=== PATIENT | male | born 1975 | race Caucasian/White ===

== ENCOUNTER 2022-09-25 00:09 | Day surgery (SDC) | payer BC, SELFPAY ==
[2022-09-17 09:29] VITALS: BMI 27.4
--- NOTE | ~2022-09-25 | XR_ITS ---
EXAMINATION: XR_ENEMABAC_CR DATE: 09/25/2022 15:09 INDICATION: Limited colonoscopy TECHNIQUE: A classification and treatment director radiograph was obtained, initially at 8:44 AM which demonstrated a large amount of gas throughout the colon. The patient agreed to return later in the afternoon in order to reduce the amount of gas. A second classification and treatment director radiograph was obtained at 2:11 PM at which time the procedure commenc ed. A catheter was inserted into the patient's rectum. Contrast was infused by gravity. Gas was infus ed by hand pump. Fluoroscopic spot images and conventional radiographs were obtained. Fluoroscopy exp osure time was 2.8 minutes. A total of 21 fluoroscopic images and 16 overhead radiographs were obtain ed. COMPARISON: None. FINDINGS: There is significant tortuosity of the sigmoid and transverse colon necessitating administration of r elatively large volume of contrast in order to reach the cecum. The colon was somewhat patulous which along with the amount of contrast in the tortuosity of the colon resulted in retention of a signific ant amount of barium which somewhat limits assessment on fluoroscopic imaging. Based primarily upon t he overhead radiographs and in particular the left and right lateral decubitus views there is however considered to be adequately gaseous distention and visualization of the entire colon. There are no e vident fixed strictures, suspicious mucosal irregularities, polyps or diverticula along the colon. IMPRESSION: 1. Significant tortuosity of the transverse and sigmoid colon but no evident colonic strictures, susp icious mucosal irregularities, polyps or diverticula. Reviewed, dictated and finalized at location A. [employer] IMPRESSION: 1. Significant tortuosity of the transverse and sigmoid colon but no evident co lonic strictures, suspicious mucosal irregularities, polyps or diverticula.
[2022-09-25 06:46] VITALS: BP 117/90; PULSE 76; RESP 18; TEMP 36.2; O2SAT 97; BMI 28.0
[2022-09-25] MEDS: LACTATED RINGERS 1,000 ML 150 ML IV CONT (07:04)
--- NOTE | 2022-09-25 07:05 | P.PNAN_ITS ---
Anes - Initial Pre Proc Eval Procedure: Operation Date: 09/25/22 08:00 Proposed Procedures p Screening Colonoscopy - Janes Acharya MD Date/Time: 09/25/22 07:05 Surgeon: Janes Acharya MD Pre Op Diagnosis: neoplasm screening, fam hx of colon polyps Patient Data Age: 47 Gender: M Height: 1.73 m Weight: 83.6 kg Last Vital Signs Temp 36.2 C L 09/25/22 06:46 Pulse 76 09/25/22 06:46 Resp 18 09/25/22 06:46 BP 117/90 09/25/22 06:46 Pulse Ox 97 09/25/22 06:46 O2 Del Method Room Air 09/25/22 06:46 Allergies Allergy/AdvReac Type Severity Reaction Status Date / Time No Known Allergies Allergy Unverified 09/17/22 09:45 Home Medications Medication Instructions Recorded Confirmed Type peg 3350-electrolytes 236 240 ml PO Q10M #4,000 mL 08/11/22 Rx gram-22.74 gram-6.74 gram-5.86 gram solution (Golytely) aspirin 81 mg tablet 81 mg PO DAILY 09/17/22 09/17/22 History atorvastatin 10 mg tablet 10 mg PO DAILY 09/17/22 09/17/22 History multivitamin with minerals-folic 1 tablet PO DAILY 09/17/22 09/17/22 History acid 0.4 mg tablet omega-3 fatty acids-vitamin E 1 cap PO DAILY 09/17/22 09/17/22 History 1,000 mg capsule Patient hx anesthesia problems: none Family hx anesthesia problems: none Results Review: All pre-operative results and documents have been reviewed as part of the pre- operative evaluation. [facility] Past Medical History Medical History (Updated 09/25/22 @ 07:06 by Tien Dubois MD) Hyperlipidemia Social History Social History Smoking status: Never smoker Alcohol intake: current Drinks per week: 3 Substance use type: does not use Living arrangements: with family Spiritual care concerns: No Anes - Eval Final PreProcedure Day of Procedure 09/25/22 07:05 Patient weight: normal Heart: regular rate and rhythm Lungs: clear to auscultation Airway: Mallampati scale class 1 Neurological: alert and oriented Last oral intake: >/= 8 hours ASA classification: I Emergent: no Anesthetic plan: proceed Anesthesia type and monitoring: general GIVS and standard monitoring Results Review: All pre-operative results and documents have been reviewed as part of the pre- operative evaluation. Informed Consent: The patient's anesthetic plan and its attendant risks and benefits were discussed with the patient/family/POA. Questions were solicited and answers provided to the satisfaction of the patient/family/POA.
--- NOTE | 2022-09-25 07:23 | PM.HPGS ---
History of Present Illness History of Present Illness Consent: Risks, benefits, and alternatives have been discussed and questions answered. Patient agrees to proceed with procedure. Chief complaint: neoplasm screening, fam hx of colon polyps Narrative: Angel Lazar is a 47 year old male Presents for screening colonoscopy. Patient's current weight appetite bowel movements are normal. Family history is significant sister and father both have had colon polyps. Patient states that his current weight appetite bowel movements are normal with no bleeding. No pain. Review of Systems Review of Systems: Review of systems noncontributory. [facility] Past Medical History Medical History (Updated 09/25/22 @ 07:24 by Janes Acharya MD) Hyperlipidemia Social History Social History Smoking status: Never smoker Alcohol intake: current Drinks per week: 3 Substance use type: does not use Living arrangements: with family Spiritual care concerns: No Meds Home Medications and Allergies Home Medications Medication Instructions Recorded Confirmed Type peg 3350-electrolytes 236 240 ml PO Q10M #4,000 mL 08/11/22 Rx gram-22.74 gram-6.74 gram-5.86 gram solution (Golytely) aspirin 81 mg tablet 81 mg PO DAILY 09/17/22 09/17/22 History atorvastatin 10 mg tablet 10 mg PO DAILY 09/17/22 09/17/22 History multivitamin with minerals-folic 1 tablet PO DAILY 09/17/22 09/17/22 History acid 0.4 mg tablet omega-3 fatty acids-vitamin E 1 cap PO DAILY 09/17/22 09/17/22 History 1,000 mg capsule Allergies Allergy/AdvReac Type Severity Reaction Status Date / Time No Known Allergies Allergy Unverified 09/17/22 09:45 Vital Signs Vital Signs - 24 hr 09/25/22 06:46 Temperature 97.1 F L Pulse Rate 76 Respiratory Rate 18 Blood Pressure 117/90 Pulse Oximetry 97 Oxygen Delivery Room Air Exam Narrative: Physical exam reveals patient to be alert. Vital signs stable. HEENT exam is unremarkable. Patient is anicteric. Lungs are clear to auscultation and percussion. Heart is without murmur or extra sounds. Abdomen bowel sounds present soft nontender with no organomegaly. Digital external rectal exam is normal. Assessment and Plan Assessment and plan (1) Family history of colonic polyps: Code(s): Z83.71 - Family history of colonic polyps Status: Acute Assessment and Plan: Patient presents today for screening colonoscopy. Family history is significant father and sister both have colon polyps. Further recommendations will be given after endoscopy.
[2022-09-25 08:13] VITALS: BP 101/69; PULSE 70; RESP 20; O2SAT 99
[2022-09-25 08:23] VITALS: BP 109/67; PULSE 68; RESP 23; O2SAT 98
[2022-09-25 08:33] VITALS: BP 112/73; PULSE 67; RESP 20; O2SAT 98
--- NOTE | 2022-09-25 08:39 | SUR.PHASEII ---
Patient taken to Xray for the barium enema before discharge. updated and patient will be discharged from xray.
== END 2022-09-25 08:39 | disposition home or self-care (01) ==
PROVIDERS: PCP Internal Medicine; Visit Provider Internal Medicine Gastroenterology
PROC: 0DJD8ZZ Inspection of Lower Intestinal Tract, Via Natural or Artificial Opening Endoscopic (ICD-10-PCS; CPT 45378; principal; 2022-09-25 08:00)
DX: Z12.11 Encounter for screening for malignant neoplasm of colon (principal); K63.89 Other specified diseases of intestine; K64.8 Other hemorrhoids; Z83.71 Family history of colonic polyps; E78.5 Hyperlipidemia, unspecified
CPT/HCPCS: 45378; 74280; J2704; J7120

== ENCOUNTER 2024-05-23 07:44 | Outpatient (CLI) | payer BC, SELFPAY ==
--- NOTE | ~2024-05-23 | XR_ITS ---
XR hand LT min 3V Ordering provider: Nirmal Vick, History: . Pain L hand . Comparison: None. FINDINGS: BONES: No acute fracture or dislocation. JOINT SPACES: Well maintained. SOFT TISSUES: Unremarkable. IMPRESSION: No acute osseous abnormality left hand. Reviewed, dictated and finalized at location A.
== END 2024-05-23 07:45 ==
PROVIDERS: PCP Internal Medicine; Visit Provider Internal Medicine
DX: M79.642 Pain in left hand (principal)
CPT/HCPCS: 73130

== ENCOUNTER 2025-02-17 14:20 | Emergency (ER) | payer BC, SELFPAY ==
--- OUTSIDE RECORDS SUMMARY | 2025-02-17 14:22 | XMS_ITS | Data Portability ---
Author Organization [place] - [facility] [employer], Main Office Address [address] [place] [address] Assessment Encounter Date Assessment Date Assessment LastModified by Organization Details LastModified Time 03/23/2023 03/23/2023 Continue current therapy six-month follow-up [id number] Not available 04/25/2023 20:42:06 Plan of Treatment Reminders Order Date Submit Date Provider Last Modified By Organization Details Last Modified Time Details Appointments None record ed. Lab None record ed. Referral None record ed. Procedures None record ed. Surgeries None record ed. Imaging None record ed. Medication Orders None record ed. Patient TargetsNo targets recorded. Patient InstructionsNo instructions recorded. Reason for Referral None Reported. Results Created Date Observation Date Name Description Value Unit Range Abnormal Flag Note LastModifiedBy Organization Detail LastModifiedTime 07/07/20 21 07/07/2021 COLOG UARD cologuard result reportable negati ve negati ve NEGAT JULIO TEST RESUL T. A negat julio Colog uard resul t indic ates a low likel ihood that a color ectal cance r (CRC) or advan enio adeno ma (shaquille omato us polyp s with more advan enio pre-m align ant featu res) is prese nt. The [facility] that a perso n with a negat julio Colog uard test has a color ectal cance r is less than 1 in 1500 (nega tive predi ctive value >99.9 %) or has an advan enio adeno ma is less than 5.3% (nega tive predi ctive value 94.7% ). These data are based on a prosp ectiv e cross -sect ional study of 10,00 0 indiv idual s at [place] [facility] risk for color ectal cance r who were scree stephen with both Colog uard and colon oscop y. (Benedict Watson. et al, N Engl J Med 2014; 370(1 4):12 86-12 97) The trip l value (refe rence range ) for this assay is negat julio. COLOG UARD RE-SC REENI NG RECOM MENDA TION: Perio dic color ectal cance r scree elmira is an impor tant part of preve ntive healt hcare for asymp tomat ic indiv idual s at [facility] for color ectal cance r. Follo wing a negat julio Colog uard resul t, the Ameri can Cance r Socie ty and U.S. Multi -Soci ety Task Force scree elmira guide lines recom mend a Colog uard re-sc reeni ng inter manuela of 3 years . Refer ences : Ameri can Cance r Socie ty Guide line for Color ectal Cance r Scree elmira: https ://anisha w.can cer.o rg/ca ncer/ colon -rect al-ca ncer/ detec tion- diagn osis- stagi ng/ac s-rec ommen datio ns.ht ml.; Fran PEÑA, Neo mondragon CR, Trish PEREZ, Color ectal Cance r Scree elmira: Recom menda tions for Physi cians and Patie nts from the U.S. Multi -Soci ety Task Force on Color ectal Cance r Scree elmira , Am Christine posada y 2017; 112:1 016-1 030. TEST DESCR IPTIO N: [place] site algor ithmi c abiodun sis of stool DNA-b ionica kers with hemog lobin immun oassa y. Quant itati ve value s of indiv idual bioma rkers are not repor table and are not assoc iated with indiv idual bioma rker resul t refer ence range s. Colog uard is inten ded for color ectal cance r scree elmira of adult s of eithe r sex, 45 years or older , who are at [facility] sk for color ectal cance r (CRC) . Colog uard has been appro smooth for use by the U.S. FDA. The perfo rmanc e of Colog uard was estab lishe d in a cross secti onal study of [facility] sk adult s aged 50-84 . Colog uard perfo rmanc e in patie nts ages 45 to 49 years was estim ated by clarisa-g aldo abiodun sis of near- age group s. Colon oscop ies perfo rmed for a posit julio resul t may find as the most clini yash signi fican t lesio n: color ectal cance r [4.0% ], advan enio adeno ma (incl uding sessi le mojgan too polyp s great er than or equal to 1cm diame ter) [20%] or non- advan enio adeno ma [31%] ; or no color ectal neopl juana [45%] . These estim ates are deriv ed from a prosp ectiv e cross -sect ional scree elmira study of 0 indiv idual s at [facility] risk for color ectal cance r who were scree stephen with both Colog uard and colon oscop y. (Benedict Patel et al, N Engl J Med 2014; 370(1 4):12 86-12 97.) Colog uard may produ ce a false negat julio or false posit julio resul t (no color ectal cance r or preca ncero us polyp prese nt at colon oscop y follo w up). A negat julio Colog uard test resul t does not guara ntee the absen ce of CRC or advan enio adeno ma (pre- cance r). The curre nt Colog uard scree elmira inter manuela is every 3 years . (Amer ican Cance r Socie ty and U.S. Multi -Soci ety Task Force ). Colog uard perfo rmanc e data in a 0 patie nt pivot al study using colon oscop y as the refer ence metho d can [facility]es [facility] locat ion: www.e xactl abs.c om/re sulmaxi . Addit ional descr iptio n of the Colog uard test proce ss, warni ngs and preca ution s can be found at www.rosalba neumann.rosalba om. Not Available [employer] (Cologuard Orders Only) [address], [place], [address], 07/12/2021 10:01:37 03/20/20 23 03/22/2023 LIPID PANEL , STAND SARAY cholesterol, total 175 mg/dL <200 normal Not Available [employer] [address] [address] [place], [address], 03/22/2023 11:32:11 03/20/20 23 03/22/2023 LIPID PANEL , STAND SARAY HDL cholesterol 49 mg/dL > or = 40 normal Not Available [email or web address] [address] [address] [place], [address], 03/22/2023 11:32:11 03/20/20 23 03/22/2023 LIPID PANEL , STAND SARAY triglyceride s 140 mg/dL <150 normal Not Available [email or web address] [facility] [address] [address] [place], [address], 03/22/2023 11:32:11 03/20/20 23 03/22/2023 LIPID PANEL , STAND SARAY LDL-choleste rol 102 mg/dL _(trina c) high Refer ence range : <100 [employer] able range <100 mg/dL for prima ry preve ntion ; <70 mg/dL for patie nts with CHD or diabe tic patie nts with > or = 2 CHD risk facto rs. LDL-C is now calcu lated using the Agustina n-Hop kins calcu latio n, which is a valid ated novel metho d jade abdi than the Fried edwige equat ion in the estim ation of LDL-C . Agustina garcia SS et al. HAYLEE. 2013; 310(1 9): 2061- 2068 (http ://ed ucati on.Qu estDi navigayaos tics. com/f aq/FA Q164) Not Available [employer] [address] [address] [place], [address], 03/22/2023 11:32:11 03/20/20 23 03/22/2023 LIPID PANEL , STAND SARAY chol/HDLC ratio 3.6 (calc ) <5.0 normal Not Available [address], [address], 03/22/2023 11:32:11 03/20/20 23 03/22/2023 LIPID PANEL , STAND SARAY non HDL cholesterol 126 mg/dL _(trina c) <130 normal For patie nts with diabe candi plus 1 major ASCVD risk facto r, treat ing to a non-H DL-C goal of <100 mg/dL (LDL- C of <70 mg/dL ) is consi ivan a brandee whitten c optio n. Not Available [address] [address] [place], [address], 03/22/2023 11:32:11 03/20/20 23 03/22/2023 COMPR EHENS JULIO METAB OLIC PANEL glucose 86 mg/dL 65-99 normal Fasti ng refer ence inter manuela Not Available [address], [address], 03/22/2023 11:32:12 03/20/20 23 03/22/2023 COMPR EHENS JULIO METAB OLIC PANEL urea nitrogen (BUN) 13 mg/dL 7-25 normal Not Available [address], [address], 03/22/2023 11:32:12 03/20/20 23 03/22/2023 COMPR EHENS JULIO METAB OLIC PANEL creatinine 0.92 mg/dL 0.60-1 .29 normal Not Available [address], [address], 03/22/2023 11:32:12 03/20/20 23 03/22/2023 COMPR EHENS JULIO METAB OLIC PANEL eGFR 102 mL/mi n/1.7 3m2 > or = 60 normal The eGFR is based on the CKD-E PI 2020 equat ion. To calcu late the new eGFR from a previ ous Creat inine or Cysta sabra C resul t, go to https ://anisha garcia.richelle peterson/edgardo khan s/ kdoqi /gfr% 5Fcal culat or Not Available [address] [address] [place], [address], 03/22/2023 11:32:12 03/20/20 23 03/22/2023 COMPR EHENS JULIO METAB OLIC PANEL BUN/creatini ne ratio NOT APPLIC ABLE (calc ) 6-22 Not Available [address], [address], 03/22/2023 11:32:12 03/20/20 23 03/22/2023 COMPR EHENS JULIO METAB OLIC PANEL sodium 136 mmol/ L 135-14 6 normal Not Available [address] [address] [place], [address], 03/22/2023 11:32:12 03/20/20 23 03/22/2023 COMPR EHENS JULIO METAB OLIC PANEL potassium 4.4 mmol/ L 3.5-5. 3 normal Not Available [address], [address], 03/22/2023 11:32:12 03/20/20 23 03/22/2023 COMPR EHENS JULIO METAB OLIC PANEL chloride 102 mmol/ L 98-110 normal Not Available [facility] [address] [address] [place], [address], 03/22/2023 11:32:12 03/20/20 23 03/22/2023 COMPR EHENS JULIO METAB OLIC PANEL carbon dioxide 29 mmol/ L 20-32 normal Not Available [address] [address] [place], [address], 03/22/2023 11:32:12 03/20/20 23 03/22/2023 COMPR EHENS JULIO METAB OLIC PANEL calcium 9.6 mg/dL 8.6-10 .3 normal Not Available [address], [address], 03/22/2023 11:32:12 03/20/20 23 03/22/2023 COMPR EHENS JULIO METAB OLIC PANEL protein, total 6.3 g/dL 6.1-8. 1 normal Not Available [address], [address], 03/22/2023 11:32:12 03/20/20 23 03/22/2023 COMPR EHENS JULIO METAB OLIC PANEL albumin 4.5 g/dL 3.6-5. 1 normal Not Available [address], [address], 03/22/2023 11:32:12 03/20/20 23 03/22/2023 COMPR EHENS JULIO METAB OLIC PANEL globulin 1.8 g/dL_ (calc ) 1.9-3. 7 low Not Available [address], [address], 03/22/2023 11:32:12 03/20/20 23 03/22/2023 COMPR EHENS JULIO METAB OLIC PANEL albumin/glob ulin ratio 2.5 (calc ) 1.0-2. 5 normal Not Available [address], [address], 03/22/2023 11:32:12 03/20/20 23 03/22/2023 COMPR EHENS JULIO METAB OLIC PANEL bilirubin, total 0.9 mg/dL 0.2-1. 2 normal Not Available [address], [address], 03/22/2023 11:32:12 03/20/20 23 03/22/2023 COMPR EHENS JULIO METAB OLIC PANEL alkaline phosphatase 53 U/L 36-130 normal Not Available [facility] [address] [address] [place], [address], 03/22/2023 11:32:12 03/20/20 23 03/22/2023 COMPR EHENS JULIO METAB OLIC PANEL AST 17 U/L 10-40 normal Not Available [address], [address], 03/22/2023 11:32:12 03/20/20 23 03/22/2023 COMPR EHENS JULIO METAB OLIC PANEL ALT 18 U/L 9-46 normal Not Available [address], [address], 03/22/2023 11:32:12 03/20/20 23 03/22/2023 CBC (INCL UDES DIFF/ PLT) white blood cell count 5.1 thous and/u L 3.8-10 .8 normal Not Available [address], [address], 03/22/2023 11:32:13 03/20/20 23 03/22/2023 CBC (INCL UDES DIFF/ PLT) red blood cell count 5.40 kristine on/uL 4.20-5 .80 normal Not Available [address], [address], 03/22/2023 11:32:13 03/20/20 23 03/22/2023 CBC (INCL UDES DIFF/ PLT) hemoglobin 16.7 g/dL 13.2-1 7.1 normal Not Available [email or web address] [address], [address], 03/22/2023 11:32:13 03/20/20 23 03/22/2023 CBC (INCL UDES DIFF/ PLT) hematocrit 47.5 % 38.5-5 0.0 normal Not Available [email or web address] [address], [address], 03/22/2023 11:32:13 03/20/20 23 03/22/2023 CBC (INCL UDES DIFF/ PLT) MCV 88.0 fL 80.0-1 00.0 normal Not Available [address], [address], 03/22/2023 11:32:13 03/20/2003/22/2023 CBC (INCL UDES DIFF/ PLT) MCH 30.9 pg 27.0-3 3.0 normal Not Available [address], [address], 03/22/2023 11:32:13 03/20/2003/22/2023 CBC (INCL UDES DIFF/ PLT) MCHC 35.2 g/dL 32.0-3 6.0 normal Not Available [address], [address], 03/22/2023 11:32:13 03/20/2003/22/2023 CBC (INCL UDES DIFF/ PLT) RDW 12.2 % 11.0-1 5.0 normal Not Available [address], [address], 03/22/2023 11:32:13 03/20/2003/22/2023 CBC (INCL UDES DIFF/ PLT) platelet count 210 thous and/u L 140-40 0 normal Not Available [address], [address], 03/22/2023 11:32:13 03/20/20 23 03/22/2023 CBC (INCL UDES DIFF/ PLT) MPV 8.8 fL 7.5-12 .5 normal Not Available [address], [address], 03/22/2023 11:32:13 03/20/20 23 03/22/2023 CBC (INCL UDES DIFF/ PLT) absolute neutrophils 2300 cells /uL 1500-7 800 normal Not Available [facility] [address], [address], 03/22/2023 11:32:13 03/20/2003/22/2023 CBC (INCL UDES DIFF/ PLT) absolute lymphocytes 2122 cells /uL 850-39 00 normal Not Available [address], [address], 03/22/2023 11:32:13 03/20/20 23 03/22/2023 CBC (INCL UDES DIFF/ PLT) absolute monocytes 490 cells /uL 200-95 0 normal Not Available [address], [address], 03/22/2023 11:32:13 03/20/20 23 03/22/2023 CBC (INCL UDES DIFF/ PLT) absolute eosinophils 158 cells /uL 15-500 normal Not Available [facility] [address], [address], 03/22/2023 11:32:13 03/20/2003/22/2023 CBC (INCL UDES DIFF/ PLT) absolute basophils 31 cells /uL 0-200 normal Not Available [address], [address], 03/22/2023 11:32:13 03/20/20 23 03/22/2023 CBC (INCL UDES DIFF/ PLT) neutrophils 45.1 % normal Not Available [facility] [address], [address], 03/22/2023 11:32:13 03/20/2003/22/2023 CBC (INCL UDES DIFF/ PLT) lymphocytes 41.6 % normal Not Available [facility] [address], [address], 03/22/2023 11:32:13 03/20/20 23 03/22/2023 CBC (INCL UDES DIFF/ PLT) monocytes 9.6 % normal Not Available [facility] [address], [address], 03/22/2023 11:32:13 03/20/2003/22/2023 CBC (INCL UDES DIFF/ PLT) eosinophils 3.1 % normal Not Available [facility] [address], [address], 03/22/2023 11:32:13 03/20/20 23 03/22/2023 CBC (INCL UDES DIFF/ PLT) basophils 0.6 % normal Not Available [email or web address] [address], [address], 03/22/2023 11:32:13 03/20/2003/22/2023 HS CRP hs CRP 0.4 mg/L normal Refer ence Range Optim al <1.0 Teresita ARELLANO et al. Endoc r Pract .2017 ;23(S uppl 2):1- 87. For ages >17 Years : hs-CR P mg/L Risk Accor ding to AHA/C DC Guide lines <1.0 Lower relat julio cardi ovasc ular risk. 1.0-3 .0 [place] ge relat julio cardi ovasc ular risk. 3.1-1 0.0 Highe r relat julio cardi ovasc ular risk. Consi trell retes ting in 1 to 2 weeks to exclu de a benig n trans ient eleva tion in the basel ine CRP value secon jalen to infec tion or infla mmati on. >10.0 Persi stent eleva tion, upon retes ting, may be assoc iated with infec tion and infla mmati on. Not Available [email or web address] [address], [address], 03/22/2023 11:32:14 03/20/20 23 03/22/2023 HEMOG LOBIN A1C hemoglobin A1C 4.9 %_of_ total _HGB <5.7 normal For the purpo se of angelica ku for the prese nce of diabe candi: <5.7% Consi stent with the absen ce of diabe candi 5.7-6 .4% Consi stent with incre ased risk for diabe candi (pred iabet es) > or =6.5% Consi stent with diabe candi This assay resul t is consi stent with a decre ased risk of diabe candi. Curre ntly, no conse nsus exist s chary rivers use of hemog lobin A1c for diagn osis of diabe candi in child annette. Accor ding to Ameri can Diabe candi Assoc iatio n (ADA) guide lines , hemog lobin A1c <7.0% repre sents optim al contr ol in non-p regna nt diabe tic patie nts. Diffe rent metri cs may apply to speci fic patie nt popul ation s. Stand ards of Medic al Care in Diabe candi(A DA). Not Available [facility] [address] [place], [address], 03/22/2023 11:32:15 Result Notes None recorded. Problems Name Problem SNOMED Code Status Onset Date Resolution Date Notes Provider Name and Address Organization Details Recorded Time Diarrhea 22294532 Active 2022 Nirmal Vick MD [address] [address], [place], [address] , [place] - [facility] [employer] [facility] 3 08:43:32 Renewal of prescription Active 2021 Not Available [facility] 3 04:49:00 Hyperbilirubi nemia 32535932 Active Not Available [facility] 3 04:49:00 Abdominal pain 09868757 Active Not Available [facility] 3 04:49:00 Long-term drug therapy Active 2021 Not Available [facility] 3 04:49:00 Pure hypercholeste rolemia 350654459 Active Not Available [facility] 3 04:49:00 Hyperlipidemi a 66314335 Active 2021 Not Available [facility] 3 04:49:00 Problem Notes None recorded. Medical Equipment None Reported. Allergies No known drug allergies Medications Name Sig Start Date Stop Date Status Note LastModified by Organization Details LastModified Time atorvastati n 10 mg tablet TAKE 1 TABLET BY MOUTH DAILY active Not Available Not Available No t Available azithromyci n 250 mg tablet use as directed 03/10 completed Not Available Not Available Not Available metronidazo le 500 mg tablet TAKE 1 TABLET BY MOUTH THREE TIMES DAILY active Not Available Not Available No t Available sulfamethox azole 800 mg-trimetho prim 160 mg tablet TAKE 1 TABLET BY MOUTH EVERY 12 HOURS active Not Available Not Available No t Available peg-electro lyte solution 420 gram oral solution 03/23 completed Not Available Not Available Not Available Aspir-81 mg tablet,jonah yed release Take 1 tablet every day by oral route. 2016 active Not Available Not Available Not Avai lable Fish Oil QD 2016 active Not Available Not Available Not Avai lable multivitami n QD 2016 active Not Available Not Available Not Avai lable Salvax 6 % topical foam 03/10 completed Not Available Not Available Not Available Flucelvax Quad (PF) 60 mcg (15 mcg x 4)/0.5 mL IM syringe active Not Available Not Available N ot Available Fluzone Quad (PF) 60 mcg (15 mcg x 4)/0.5 mL IM syringe ADM 0.5ML IM UTD 10/24 completed Not Available Not Available Not Available Vitals Date Recorded Body mass index (BMI) Body height Heart rate Body temperature Body weight Systolic blood pressure Diastolic blood pressure Provider Name and Address Organization Details Last Updated DateTime 1 28 kg/m2 172.72 cm 76 /min 97.3 [degF] 86630 g 124 mm[Hg] 78 mm[Hg] Not Available [facility] 3 04:45:47 Date Recorded Body mass index (BMI) Body height Oxygen saturation Oxygen saturation in Arterial blood by Pulse oximetry Heart rate Body temperature Body weight Systolic blood pressure Diastolic blood pressure Provider Name and Address Organization Details Last Updated DateTime 2 29.6 kg/m2 172.72 cm 98 % 98 % 78 /min 97.3 [degF] 87182.5 1 g 122 mm[Hg] 68 mm[Hg] Not Available [facility] 3 04:45:47 Date Recorded Body mass index (BMI) Body height Heart rate Body temperature Body weight Systolic blood pressure Diastolic blood pressure Provider Name and Address Organization Details Last Updated DateTime 2 28.3 kg/m2 172.72 cm 77 /min 97.1 [degF] 35208.1 8 g 118 mm[Hg] 80 mm[Hg] Not Available [facility] 3 04:45:47 Date Recorded Body height Body mass index (BMI) Body weight Body temperature Heart rate Oxygen saturation Oxygen saturation in Arterial blood by Pulse oximetry Systolic blood pressure Diastolic blood pressure Provider Name and Address Organization Details Last Updated DateTime 3 172.72 cm 28.9 kg/m2 29812.5 5 g 98.2 [degF] 81 /min 99 % 99 % 118 mm[Hg] 76 mm[Hg] Lucinda David RN [email or web address] 3 10:18:39 Social History Question Answer Notes LastModified by Organizat ion Details LastModified Time Tobacco Smoking Status Never Smoker ANDREW Anton, [email or web address] 03/23/2023 10:10:56 Do You Have An Advance Directive? Yes [id number] Information not available 01/13/2023 What Is Your Level Of Alcohol Consumption? Moderate [id number] Information not available 01/13/2023 Do You Wear A Helmet When Biking? No Information not available 03/23/2023 Are You Blind Or Do You Have Difficulty Seeing? No Information not available 03/23/2023 What Is Your Level Of Caffeine Consumption? Heavy [id number] Information not available 01/13/2023 How Much Tobacco Do You Chew? None [id number] Information not available 01/13/2023 In The 14 Days Before Symptom Onset, Have You Had Close Contact With A Laboratory-confi rmed COVID-19 While That Case Was Ill? No Information not available 03/23/2023 In The 14 Days Before Symptom Onset, Have You Had Close Contact With A Person Who Is Under Investigation For COVID-19 While That Person Was Ill? No Information not available 03/23/2023 Are You Currently Employed? Yes [email or web address] Information not available 03/23/2023 Are You Deaf Or Do You Have Serious Difficulty Hearing? No Information not available 03/23/2023 What Type Of Diet Are You Following? REGULAR [id number] Information not available 01/13/2023 Which Illicit Or Recreational Drugs Have You Used? None Information not available 03/23/2023 Do You Or Have You Ever Used E-cigarettes Or Vape? Never Used Electronic Cigarettes Information not available 03/23/2023 What Is The Highest Grade Or Level Of School You Have Completed Or The Highest Degree You Have Received? 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 No Information not available 03/23/2023 What Is The Fluoride Status Of Your Home? Unknown Information not available 03/23/2023 Are There Any Guns Present In Your Home? Yes Information not available 03/23/2023 Do You Use Insect Repellent Routinely? No Information not available 03/23/2023 Where [facility] You [facility] Information not available 03/23/2023 What Was The Date Of Your Most Recent Tobacco Screening? 03/23/2023 [email or web address] Information not available 03/23/2023 How Many Children Do You Have? 3 [email or web address] Information not available 03/23/2023 Have You Ever Been Counseled For Unhealthy Alcohol Use? No [email or web address] Information not available 03/23/2023 Do You Have Any Pets? Yes Information not available 03/23/2023 What Is Your Relationship Status? [email or web address] Information not available 03/23/2023 Do You Use Your Seat Belt Or Car Seat Routinely? Yes Information not available 03/23/2023 Do You Have Smoke And Carbon Monoxide Detectors In Your Home? Yes Information not available 03/23/2023 Are You Passively Exposed To Smoke? No Information not available 03/23/2023 Do You Or Have You Ever Used Smokeless Tobacco? Never Used Smokeless Tobacco [id number] Information not available 01/13/2023 Are There Any Smokers In Your House? No Information not available 03/23/2023 How Much Tobacco Do You Smoke? No [id number] Information not available 01/13/2023 Do You Feel Stressed (tense, Restless, Nervous, Or Anxious, Or Unable To Sleep At Night)? [id number] Information not available 03/23/2023 Do You Use Any Illicit Or Recreational Drugs? No [email or web address] Information not available 03/23/2023 Do You Use Sunscreen Routinely? Yes Information not available 03/23/2023 Has Tobacco Cessation Counseling Been Provided? No Information not available 03/23/2023 How Many Years Have You Smoked Tobacco? 0 Information not available 03/23/2023 Have You Recently Traveled Abroad? No Michelle Jasminee Joseph In April [email or web address] Information not available 03/23/2023 Do You Have Any Dietary Restrictions? No Information not available 03/23/2023 Sex: Male Functional Status Question Answer Note LastModified by Organizat ion Details LastModified Time Do you have difficulty walking or climbing stairs? No Information not available 03/23/2023 Do you have difficulty doing errands alone? No Information not available 03/23/2023 Do you have difficulty dressing or bathing? No Information not available 03/23/2023 What is your exercise level? Moderate [id number] Information not available 01/13/2023 Mental Status Question Answer Note LastModified by Organization D etails LastModified Time Do you have difficulty concentrating, remembering or making decisions? No Information no t available 03/23/2023 Family History Relationship Description Onset Age of this Age Resolved Age Notes LastModified by Organization Details LastModified Time Father Hypercholest erolemia [id number] Not available 01/13/2023 04:43:14 Mother Hypercholest erolemia [id number] Not available 01/13/2023 04:43:14 Medical History Condition Response BLINDNESS N NERVE DISEASE N RHEUMATIC FEVER N BLADDER PROBLEMS N KIDNEY STONES N MRSA N OTHER # 1 Y POLIO N LUNG DISEASE/DISORDER N RADIATION / CHEMOTHERAPY N COPD N Other # 2 N BLOOD DISEASES N EAR OR HEARING PROBLEMS N MUMPS N BOWEL PROBLEMS N DEPRESSION (INCLUDING POST ) N STROKE/TIA N ULCERS N BENIGN PROSTATIC HYPERPLASIA N MEASLES N MYOCARDIAL INFARCTION N OBESITY N GERD/NAUSEA N ANEURYSM N URINARY/BLADDER/KIDNEY PROBLEMS N CORONARY ARTERY DISEASE (CAD) N ADDICTION CONCERNS N Impotence N ENDOMETRIOSIS N USE OF BLOOD THINNERS N SKIN PROBLEMS N GASTROINTESTINAL DISORDER N PERIPHERAL VASCULAR DISEASE N MUSCLE,JOINT OR BONE PROBLEMS N GASTROINTESTINAL BLEEDING N BLOOD CLOTS N ASTHMA N CATARACTS N ERECTILE DYSFUNCTION N VARICOSITIES N GI PROBLEMS N Low Testosterone N INFERTILITY N AIDS/HIV N CHEMOTHERAPY / RADIATION N LIVER DISEASE N MALE HYPOGONADISM N HYPERTENSION N Deficiency N TOURETTE'S N ANXIETY DISORDER N BLOOD TRANSFUSION N ANEMIA/BLOOD DISORDER N CHRONIC EAR INFECTIONS N BRONCHITIS N TUBERCULOSIS N GLAUCOMA N FOOT PROBLEM N DIVERTICULITIS N SLEEP APNEA N CHICKENPOX N INFECTIOUS DISEASE N PROSTATE N HEART ARRHYTHMIA N INSOMNIA N HIGH CHOLESTEROL / HYPERLIPIDEMIA Y HYPERTHYROIDISM N EYE PROBLEMS N EDEMA N CHRONIC PAIN SYNDROME N HYPOTHYROIDISM N CONSTIPATION N CAROTID BLOCKAGE N BACK / NECK PROBLEMS N HAVE YOU BEEN HOSPITALIZED OR SEEN IN [place] [facility] IN THE PAST YEAR ? N ATHEROSCLEROSIS N BREAST PROBLEMS N DIALYSIS N ECZEMA N OSTEOPOROSIS N ARTHRITIS N APPENDICITIS N DIABETES, TYPE N BAD TEETH N ENT N HEARTBURN / REFLUX N AUTISM SPECTRUM DISORDER (ASD) N HEPATITIS / LIVER DISEASE N GOUT N SLEEP DISORDER N ALZHEIMER'S DISEASE N Brain Problems N HERPES N DEMENTIA N SEIZURES/EPILEPSY N HEADACHES/MIGRAINES N VASCULAR DISEASE N PACEMAKER N Blood Disorder N DIZZINESS N KIDNEY DISEASE N HEART DISEASE/HEART PROBLEMS N MULTIPLE SCLEROSIS N CARDIAC ARRHYTHMIA N CANCER: SPECIFY N Gall Stones N ATRIAL FIBRILLATION N PULMONARY EMBOLISM N AUTOIMMUNE DISEASE N Immunizations Vaccine Type Date Status Note Provider Nam e and Address Organization Details Recorded Time COVID-19, mRNA, LNP-S, PF, 30 mcg/0.3 mL dose 1 completed Not Available [facility] 01/13/2023 04:56:20 COVID-19, mRNA, LNP-S, PF, 30 mcg/0.3 mL dose 1 completed Not Available [facility] 01/13/2023 04:56:21 Influenza, split virus, quadrivalent, preservative 0 completed Not Available [facility] 01/13/2023 04:56:21 Influenza, split virus, quadrivalent, preservative 9 completed Not Available [facility] 01/13/2023 04:56:21 Influenza, split virus, quadrivalent, PF 8 completed Not Available [facility] 01/13/2023 04:56:21 Influenza, split virus, quadrivalent, PF 7 completed Not Available [facility] 01/13/2023 04:56:21 Influenza, split virus, quadrivalent, PF 5 completed Not Available [facility] 01/13/2023 04:56:21 Influenza, split virus, trivalent, PF 4 completed Not Available [facility] 01/13/2023 04:56:21 Past Encounters Encounter ID Performer Location Encounter Start Date Encounter Closed Date Diagnosis/Indication Diagnosis SNOMED-CT Code Diagnosis ICD10 Code Diagnosis Note [id number] [facility] [address] [place] [address] [place] [address] 04/29/2021 00:00:00 05/10/2021 16:17:12 [id number] [facility] Internal Med [address] [address] 01/12/2022 00:00:00 01/17/2022 16:03:17 [id number] [facility] [address] [place] [address] [place] [address] 07/23/2022 00:00:00 08/02/2022 11:51:02 [id number] Nirmal Vick MD [facility] Internal Med [address] [place] [address] 03/23/2023 10:09:16 03/23/2023 11:05:28 Hyperlipidemia 70779340 E78.5 Hyperbilirubinemia 39619 006 E80.6 Health Concerns Section Related Observation LastModified by Organization Detai ls LastModified Time None Recorded Concern Status LastModified by Organization Details LastModified Time None Recorded Advance Directives Directive Y: Payers Encounter Date Sequence Insurance Name Policy Number Policy Holley Covered Member ID Holley Member ID Guarantor Name 03/23/2023 1 [place] [id number] Angel M Nagi [id number] Caleb Lazar Notes Date Note Type Note Provider Name and Address Organization Details Recorded Time 03/23/2023 text/html Regular follow-u p hyperlipidemia he is exercising regularly blood work looks good bilirubin looks good as well occasional have some problems with some pain in his great toe Nirmal Vick MD [address] [facility] [facility] [address], [place], [address], [place] [facility] [employer] [facility] 04/25/2023 20:43:06
--- OUTSIDE RECORDS SUMMARY | 2025-02-17 14:22 | XMS_ITS | Encounter Summary ---
Author Organization [facility] Address [address] [place] [address] Care Team Providers Care Rrt Name Role Phone Adams Morris MD Primary Care Provider [phone] Encounter Details Date Type Department Care Team (Late st Contact Info) Description 02/24/2008 Outpatient Historical [facility] Internal Medicine Medical [place] [facility] [address] 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
--- OUTSIDE RECORDS SUMMARY | 2025-02-17 14:22 | XMS_ITS | Encounter Summary ---
Author Organization [facility] Address [address] [place] [address] Care Team Providers Care Staff Design Engineer Name Role Phone Adams Morris MD Primary Care Provider [phone] Encounter Details Date Type Department Care Team (Late st Contact Info) Description 03/12/2008 Orders Only [facility] Internal Medicine Medical [place] A [facility] [address] [facility] [address] [address] Adams Morris MD [address] [place] [address] Social History Tobacco Use Types Packs/Day Years Used Date Smoking Tobacco: Never Assessed Sex and Gender Information Value Date Recorded Sex Assigned at Not on file 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 TOBACCO USE Patient does not currently use tobacco. MEDICATIONS: Medication list current. CHIEF COMPLAINT Seen as a new patient to get established with the practice. Seen for a preventive examination. HISTORY: Caleb has some complaints outlined in the ROS. CURRENT PROBLEM LIST: V70.0 ROUTINE GENERAL MEDICAL EXAMINATION V77.91 SCREENING FOR LIPID DISORDERS CURRENT MEDICATION LIST: TYLENOL 8 HOUR ORAL TABLET CONTROLLED RELEASE 650 MG, 1 Every Day, As Needed TYLENOL PM EXTRA STRENGTH ORAL LIQUID 1000-50 MG/30ML, 1 Every Day At Bedtime, As Needed ZYRTEC-D ALLERGY & CONGESTION ORAL TABLET 12 HR 5-120 MG, 1 Every Day, As Needed CURRENT ALLERGY LIST: NKDA ROS: GENERAL: Normal activity and energy level, no change in appetite. No major weight gain or loss. No malaise, chills, fever, diaphoresis. EYES: No vision changes or diplopia. ENT: No tinnitus, hearing loss, infections, drainage, or ear pain, HAS RECURRENT NASAL CONGESTION, RECURRENT SINUS CONGESTION NOTED, no gum swelling, bleeding, pain, sores or lip abnormalities, no epistaxis, soreness of the tongue, dysphagia, or hoarseness. ENDOCRINE: No heat or cold intolerance, no excessive thirst. CARDIAC: No chest pain, palpitations, orthopnea, dyspnea on exertion, or paroxysmal nocturnal dyspnea. RESPIRATORY: No dyspnea, cough, hemoptysis or wheezing. SKIN/BREAST/CHEST: HAS DRY SKIN, HAS SKIN SORES. : No dysuria or hematuria. GI: No abdominal pain, nausea, vomiting, diarrhea, constipation, melena, or hematochezia. NEUROLOGIC: No weakness, dizziness, loss of consciousness, transient ischemic symptoms, or seizures. MUSCULOSKELETAL: No muscle or joint pain, weakness, swelling or inflammation. No restriction of motion, no atrophy or backache. PSYCHIATRIC: No increased nervousness, mood changes or depression. Coping well. PAST MEDICAL HISTORY: reviewed 03/12/08 FAMILY HISTORY: reviewed 03/12/08 SOCIAL HISTORY: reviewed 03/12/08 TOBACCO USE: DISCUSSED SMOKING: non-smoker. PHYSICAL EXAMINATION: CONSTITUTIONAL: GENERAL APPEARANCE: male, normal body habitus, in no acute distress. EYES: CONJUNCTIVAE/LIDS: Conjunctivae and lids appear normal. PUPILS: Pupils equal and normally reactive to light and accommodation. EARS, NOSE, MOUTH AND THROAT: EXTERNAL/EARS AND NOSE: Overall appearance normal with no scars, lesions or masses. NOSE (AND SINUS): No abnormality of the nose or sinuses is noted. ORAL: Inspection of gums, lips, palate, and teeth normal. No scars, lesions, or masses. Oral mucosaunremarkable with non-inflamed posterior pharynx. NECK/THYROID: Trachea midline. No thyroid enlargement, tenderness, or mass. No supraclavicular or cervical adenopathy. RESPIRATORY: Clear to auscultation and percussion. Normal respiratory effort. CARDIOVASCULAR: CARDIAC: Regular rhythm. No murmurs, rubs, or gallops. ARTERIAL: No aortic bruits. EDEMA/VARICOSITIES OF EXTREMITIES: No edema or varicosities. GASTROINTESTINAL: ABDOMEN: Soft, non-tender, without masses. Bowel sounds active. LIVER/SPLEEN/KIDNEY: No hepatosplenomegaly, tenderness or nodularity. Kidneys not palpable. SKIN: RASH/LESION #1 LOCATION: Plantar aspect of the 2nd left toe, plantar aspect of the 2nd right toe. CHARACTERISTICS: The lesion is red. The rash is vesicular. The lesion surface is raised. There are multiple lesions. ASSESSMENT Contact dermatitis 692.9. NEUROLOGIC: CRANIAL NERVES: belt dresser II-XII grossly intact. DEEP TENDON REFLEXES: Patellar reflexes 2+/4+ and symmetrical, biceps reflexes 2+/4+ and symmetrical. ASSESSMENT/PLAN: V70.0-ROUTINE GENERAL MEDICAL EXAMINATION ASSESSMENT: The patient is doing well and no distinct problems were identified on exam. V77.91-SCREENING FOR LIPID DISORDERS ASSESSMENT: will screen for lipid disorder given his family hx and age. LAB ORDERS: Order number: [id number] Test Ordered: LIPID PANEL 1078 Order number: [id number] Test Ordered: COMPREHENSIVE METABOLIC PANEL & GFR 1112 Order number: [id number] Test Ordered: TSH 1720 HEALTH MAINTENANCE: LAST TD: 11/2001 TIME PHYSICIAN WITH PATIENT: TOTAL: 25 minutes. PREVENTIVE COUNSELING The patient was counseled regarding diet, regular sustained exercise for at least 30 minutes 3-4 times per week, screening procedures and recommended schedule for GI hemoccult testing, colonoscopy, cholesterol, thyroid and diabetes screening. RETURN VISIT : Patient wishes to make own appointment. Electronically Signed by: Adams Torres MD on Wednesday, March 12, 2008 documented in this encounter Plan of Treatment Not on file documented as of this encounter Visit Diagnoses Not on filedocumented in this encounter Care Teams Staff Design Engineer Relationship Specialty Start Date End Date Adams Morris MD [address] [place] [address] PCP - General 04/13/08 documented as of this encounter
--- OUTSIDE RECORDS SUMMARY | 2025-02-17 14:22 | XMS_ITS | Clinical Summary ---
Author Organization [facility] Address [address] [facility] [place] [address] Phone Care Team Providers Care Well Servicing Rig Operator Name Role Phone Adams Morris MD Primary Care Provider [phone] Allergies Active Allergy Reactions Criticality Noted Date Comments No Known Allergies 03/12/2008 Medications hydrocodone-acet aminophen (VICODIN) 5-500 mg Oral Tab Take 1 Tab by mouth every 4 hours as needed for Pain. Active AUGMENTIN 500-125 mg Oral Tab Take 1 Tab by mouth every 8 hours. 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[employer] Gender Identity Not on file Sexual Orientation Not on file Last Filed Vital Signs Vital Sign Reading Time Taken Comments Blood Pressure 110/72 04/18/2008 10:14 AM CDT Pulse 78 04/18/2008 10:14 AM CDT Temperature 36.8 C (98.2 F) 04/18/2008 10:14 AM CDT Respiratory Rate - - Oxygen Saturation - - Inhaled Oxygen Concentration - - Weight 82.6 kg (182 lb) 04/18/2008 10:14 AM CDT Height 172.7 cm (5' 8 ) 03/12/2008 9:00 AM CDT Body Mass Index 27.67 03/12/2008 9:00 AM CDT Plan of Treatment Health Maintenance Due Date Last Done Comments DTAP/TDAP/TD VACCINES (1 - Tdap) 1992 HEPATITIS B VACCINES (1 of 3 - 19+ 3-dose series) 1992 COLORECTAL SCREENING 2018 Colorectal Cancer Screening 2018 FIT-DNA Q 3 years 2018 FIT/FOBT Q 1 year 2018 Flex Sig/CT Colonography Q 5 years 2018 ZOSTER VACCINE (1 of 2) 2023 INFLUENZA VACCINE (#1) 2024 PNEUMOCOCCAL VACCINE 0-49 YEARS Aged Out No longer eligible based on patient's age to complete this topic Care Teams Well Servicing Rig Operator Relationship Specialty Start Date End Date Adams Morris MD [address] [place] [address] PCP - General 04/13/08
--- OUTSIDE RECORDS SUMMARY | 2025-02-17 14:22 | XMS_ITS | Encounter Summary ---
Author Organization [facility] Address [address] [place] [address] Care Team Providers Care Tube Repairer Name Role Phone Adams Morris MD Primary Care Provider [phone] Encounter Details Date Type Department Care Team (Late st Contact Info) Description 03/12/2008 Outpatient Historical [facility] Internal Medicine Medical [place] [facility] [address] [facility] [address] [address] Adams Morris MD [address] [place] [address] Social History Tobacco Use Types Packs/Day Years Used Date Smoking Tobacco: Never Assessed Sex and Gender Information Value Date Recorded Sex Assigned at Not on file 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[employer] Gender Identity Not on file Sexual Orientation Not on file documented as of this encounter Last Filed Vital Signs Vital Sign Reading Time Taken Comments Blood Pressure 102/62 03/12/2008 9:00 AM CDT Pulse 62 03/12/2008 9:00 AM CDT Temperature 37.1 C (98.7 F) 03/12/2008 9:00 AM CDT Respiratory Rate - - Oxygen Saturation - - Inhaled Oxygen Concentration - - Weight 83.5 kg (184 lb) 03/12/2008 9:00 AM CDT Height 172.7 cm (5' 8 ) 03/12/2008 9:00 AM CDT Body Mass Index 27.98 03/12/2008 9:00 AM CDT documented in this encounter Plan of Treatment Not on file documented as of this encounter Visit Diagnoses Not on filedocumented in this encounter Care Teams Tube Repairer Relationship Specialty Start Date End Date Adams Morris MD [address] [place] [address] [place] [address] PCP - General 04/13/08 documented as of this encounter
--- OUTSIDE RECORDS SUMMARY | 2025-02-17 14:22 | XMS_ITS | Encounter Summary ---
Author Organization [facility] Address [address] [place] [address] Care Team Providers Care Secretary To The Vice President Name Role Phone Adams Morris MD Primary Care Provider [phone] Encounter Details Date Type Department Care Team (Latest Contact Info) Description 03/12/2008 Outpatient Historical [facility] Internal Medicine Medical [place] [facility] [address] [facility] [address] [address] Adams Morris MD [address] [place] [address] Screening for Lipoid Disorders Social History Tobacco Use Types Packs/Day Years Used Date Smoking Tobacco: Never Assessed Sex and Gender Information Value Date Recorded Sex Assigned at Not on file 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 Gender Identity Not on file Sexual Orientation Not on file documented as of this encounter Plan of Treatment Not on file documented as of this encounter Procedures Procedure Name Priority Date/Time Associated Diagnosis Comments TSH Routine 03/12/2008 10:28 AM CDT LIPID PANEL Routine 03/12/2008 10:28 AM CDT COMPREHENSIVE METABOLIC PANEL Routine 03/12/2008 10:28 AM CDT documented in this encounter Results * (ABNORMAL) LIPID PANEL (03/12/2008 10:28 AM CDT) HDL 44 40 - 59 mg/dL [facility] CHOLESTEROL 235(H) 100 - 199 mg/dL [facility] CHOL/HDL RATIO 5.3(H) 2.0 - 5.0 [facility] TRIGLYCERIDE 195(H) 10 - 149 mg/dL [facility] LDL CALCULATED 152(H) <=99 mg/dL [facility] LIPID PANEL COMMENT See Below [facility] Comment: The adult ATP and pediatric NCEP classifications for lipids are available on the [facility] Intranet at: [email or web address] Select: Lab Policies and Procedures,Current Select: Lipid Panel Interpretation Blood specimen (specimen) 03/12/2008 10:28 AM CDT 03/12/2008 10:51 AM CDT Adams Morris MD CHEMISTRY ORDERABLES Edited Performing Organization Address [facility] Co de Phone Number [facility] [address] [facility] [place] [address] * TSH (03/12/2008 10:28 AM CDT) TSH 1.36 0.27 - 4.20 uU/mL [facility] Blood specimen (specimen) 03/12/2008 10:28 AM CDT 03/12/2008 10:51 AM CDT Adams Morris MD CHEMISTRY ORDERABLES Final Resu lt Performing Organization Address [facility]/ZIP Co de Phone Number [facility] [address] [place] [address] * (ABNORMAL) COMPREHENSIVE METABOLIC PANEL (03/12/2008 10:28 AM CDT) GLUCOSE 88 65 - 99 mg/dL [facility] AST 26 12 - 38 U/L [facility] POTASSIUM 4.0 3.5 - 4.9 mmol/L [facility] CALCIUM 9.4 8.4 - 10.2 mg/dL [facility] ALBUMIN 4.8 3.4 - 4.8 g/dL [facility] BUN 15 6 - 20 mg/dL [facility] CREATININE 1.04 0.67 - 1.17 mg/dL [facility] ALT 20 0 - 41 U/L [facility] CHLORIDE 100 96 - 108 mmol/L [facility] BILIRUBIN TOTAL 1.1(H) 0.2 - 1.0 mg/dL [facility] ALKALINE PHOSPHATASE 61 40 - 129 U/L [facility] SODIUM 141 135 - 145 mmol/L [facility] TOTAL PROTEIN 7.1 6.3 - 8.6 g/dL [facility] CO2 26 22 - 30 mmol/L [facility] GFR >60 >=60 mL/min/1. 7 sq meter [facility] Comment: Estimated GFR rate interpretative information for both Americans and non- Americans is available on the [facility] Intranet at: [email or web address] Select: Lab Policies and Procedures Select: Reference Ranges - GFR GFR, >60 >=60 mL/min/1. 7 sq meter [facility] Blood specimen (specimen) 03/12/2008 10:28 AM CDT 03/12/2008 10:51 AM CDT us Adams Morris MD CHEMISTRY ORDERABLES Edited [facility] [address] [place] [address] documented in this encounter Visit Diagnoses Diagnosis Screening for lipoid disorders documented in this encounter Care Teams Secretary To The Vice President Relationship Specialty Start Date End Date Adams Morris MD [address] [place] [address] PCP - General 04/13/08 documented as of this encounter
[2025-02-17 14:24] VITALS: BP 147/81; PULSE 78; RESP 16; TEMP 36.3; O2SAT 99
--- OUTSIDE RECORDS SUMMARY | 2025-02-17 16:24 | XMS_ITS | Encounter Summary ---
Author Organization [facility] Address [address] [place] [address] Care Team Providers Care Software Applications Engineer Name Role Phone Adams Morris MD Primary Care Provider [phone] Encounter Details Date Type Department Care Team (Latest Contact Info) Description 03/12/2008 Outpatient Historical [facility] Internal Medicine Medical [place] A [facility] [address] [address] Adams Morris MD [address] [place] [address] Screening for Lipoid Disorders Social History Tobacco Use Types Packs/Day Years Used Date Smoking Tobacco: Never Assessed Sex and Gender Information Value Date Recorded Sex Assigned at Not on file 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 Gender Identity Not on file Sexual Orientation [...] CDT) HDL 44 40 - 59 mg/dL [facility] CHOLESTEROL 235(H) 100 - 199 mg/dL [facility] CHOL/HDL RATIO 5.3(H) 2.0 - 5.0 [facility] TRIGLYCERIDE 195(H) 10 - 149 mg/dL [facility] LDL CALCULATED 152(H) <=99 mg/dL [facility] LIPID PANEL COMMENT See Below [facility] Comment: The adult ATP and pediatric NCEP classifications for lipids are available on the [facility] Intranet at: [email or web address] Select: Lab Policies and Procedures,Current Select: Lipid Panel Interpretation Blood specimen (specimen) 03/12/2008 10:28 AM CDT 03/12/2008 10:51 AM CDT Adams Morris MD CHEMISTRY ORDERABLES Edited Performing Organization Address [facility] Co de Phone Number [facility] [address] [facility] [place] [address] * TSH (03/12/2008 10:28 AM CDT) TSH 1.36 0.27 - 4.20 uU/mL [facility] Blood specimen (specimen) 03/12/2008 10:28 AM CDT 03/12/2008 10:51 AM CDT Adams Morris MD CHEMISTRY ORDERABLES Final Resu lt Performing Organization Address [facility]/ZIP Co de Phone Number [facility] [address] [place] [address] * (ABNORMAL) COMPREHENSIVE METABOLIC PANEL (03/12/2008 10:28 AM CDT) GLUCOSE 88 65 - 99 mg/dL [facility] AST 26 12 - 38 U/L [facility] POTASSIUM 4.0 3.5 - 4.9 mmol/L [facility] CALCIUM 9.4 8.4 - 10.2 mg/dL [facility] ALBUMIN 4.8 3.4 - 4.8 g/dL [facility] BUN 15 6 - 20 mg/dL [facility] CREATININE 1.04 0.67 - 1.17 mg/dL [facility] ALT 20 0 - 41 U/L [facility] CHLORIDE 100 96 - 108 mmol/L [facility] BILIRUBIN TOTAL 1.1(H) 0.2 - 1.0 mg/dL [facility] ALKALINE PHOSPHATASE 61 40 - 129 U/L [facility] SODIUM 141 135 - 145 mmol/L [facility] TOTAL PROTEIN 7.1 6.3 - 8.6 g/dL [facility] CO2 26 22 - 30 mmol/L [facility] GFR >60 >=60 mL/min/1. 7 sq meter [facility] Comment: Estimated GFR rate interpretative information for both Americans and non- Americans is available on the [facility] Intranet at: [email or web address] Select: Lab Policies and Procedures Select: Reference Ranges - GFR GFR, >60 >=60 mL/min/1. 7 sq meter [facility] Blood specimen (specimen) 03/12/2008 10:28 AM CDT 03/12/2008 10:51 AM CDT us Adams Morris MD CHEMISTRY ORDERABLES Edited [facility] [address] [place] [address] documented in this encounter Visit Diagnoses Diagnosis Screening for lipoid disorders documented in this encounter Care Teams Software Applications Engineer Relationship Specialty Start Date End Date Adams Morris MD [address] [place] [address] PCP - General 04/13/08 documented as of this encounter
--- OUTSIDE RECORDS SUMMARY | 2025-02-17 16:24 | XMS_ITS | Encounter Summary ---
Author Organization [facility] Address [address] [place] [address] Care Team Providers Care College Archivist Name Role Phone Adams Morris MD Primary Care Provider Encounter Details Date Type Department Care Team (Late st Contact Info) Description 03/12/2008 Orders Only [facility] Internal Medicine Medical [place] A [facility] [address] [address] Adams Morris MD [address] [place] [address] Social History Tobacco Use Types Packs/Day Years Used Date Smoking Tobacco: Never Assessed Sex and Gender Information Value Date Recorded Sex Assigned at Not on file 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 NEUROLOGIC: CRANIAL NERVES: whistle punk II-XII grossly intact. DEEP TENDON REFLEXES: Patellar reflexes 2+/4+ and symmetrical, biceps reflexes 2+/4+ and symmetrical. ASSESSMENT/PLAN: V70.0-ROUTINE GENERAL MEDICAL EXAMINATION ASSESSMENT: The patient is doing well and no distinct problems were identified on exam. V77.91-SCREENING FOR LIPID DISORDERS ASSESSMENT: will screen for lipid disorder given his family hx and age. LAB ORDERS: Order number: [id number] Test Ordered: LIPID PANEL 1078 Order number: [id number] Test Ordered: COMPREHENSIVE METABOLIC PANEL & GFR 1112 Order number: [id number] Test Ordered: TSH 1720 HEALTH MAINTENANCE: LAST [...] on filedocumented in this encounter Care Teams College Archivist Relationship Specialty Start Date End Date Adams Morris MD [address] [place] [address] PCP - General 04/13/08 documented as of this encounter
--- OUTSIDE RECORDS SUMMARY | 2025-02-17 16:24 | XMS_ITS | Encounter Summary ---
Author Organization [facility] Address [address] [place] [address] Care Team Providers Care Sheet Taker Name Role Phone Adams Morris MD Primary Care Provider [phone] Encounter Details Date Type Department Care Team (Late st Contact Info) Description 02/24/2008 Outpatient Historical [facility] Internal Medicine Medical [place] A [facility] [address] [address] Adams Morris MD [address] [address] Social History Tobacco Use Types Packs/Day Years Used Date Smoking Tobacco: Never Assessed Sex and Gender Information Value Date Recorded Sex Assigned at Not on file 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
--- OUTSIDE RECORDS SUMMARY | 2025-02-17 16:24 | XMS_ITS | Encounter Summary ---
Author Organization [facility] Address [address] [place] [address] Care Team Providers Care Drier Take Off Tender Name Role Phone Adams Morris MD Primary Care Provider [phone] Encounter Details Date Type Department Care Team (Late st Contact Info) Description 03/12/2008 Outpatient Historical [facility] Internal Medicine Medical [place] A [facility] [address] [address] Adams Morris MD [address] [place] [address] Social History Tobacco Use Types Packs/Day Years Used Date Smoking Tobacco: Never Assessed Sex and Gender Information Value Date Recorded Sex Assigned at Not on file 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
--- OUTSIDE RECORDS SUMMARY | 2025-02-17 16:24 | XMS_ITS | Clinical Summary ---
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
--- NOTE | 2025-02-17 16:49 | ED.GENADULT ---
HPI - General Adult General Chief complaint: Unspecified Stated complaint: REQUESTING RABIES SHOT BAT EXPOSURE Time Seen by Provider: 02/17/25 15:56 Source: patient Mode of arrival: ambulatory Limitations: no limitations History of Present Illness HPI narrative: 49-year-old male presenting to the ED for chief complaint of possible bat exposure. They explained that the that was seen flying across the bedroom while they were awake on Wednesday evening about 3 days ago, 02/17/2025. They were in contact with the PCP who recommends coming to the ER to initiate rabies vaccine out of an abundance of precaution. They deny any bite h[place] or specific close exposure to the bat. Related Data Home Medications ?Medication ?Instructions ?Recorded ?Confirmed ?Last Taken ?Type aspirin 81 mg tablet 81 mg PO DAILY 09/17/22 09/17/22 Unknown History atorvastatin 10 mg tablet 10 mg PO DAILY 09/17/22 09/17/22 Unknown History multivitamin with minerals-folic 1 tablet PO DAILY 09/17/22 09/17/22 Unknown History acid 0.4 mg tablet omega-3 fatty acids-vitamin E 1 cap PO DAILY 09/17/22 09/17/22 Unknown History 1,000 mg capsule Allergies Allergy/AdvReac Type Severity Reaction Status Date / Time No Known Allergies Allergy Verified 02/17/25 14:20 Review of Systems Review of Systems: All systems as dictated in [facility] Past Medical History Medical History (Updated 02/18/25 @ 00:00 by Bess Daemon) Hyperlipidemia Social History Social History Smoking status: Never smoker Alcohol intake: current Drinks per week: 3 Substance use type: does not use Living arrangements: with family Spiritual care concerns: No Exam Narrative: GENERAL: Well-appearing, well-nourished, and in no acute distress. HEAD: Normocephalic, atraumatic. EYES: PERRLA and EOMI. ENT: Nares clear, no rhinorrhea or epistaxis. Mucous membranes moist. Oropharynx without tonsillar hypertrophy exudate or other lesions. NECK: Supple. No adenopathy or masses. CHEST: No respiratory distress. Clear to auscultation. No wheezes rales or rhonchi HEART: Regular rate and rhythm. No murmur heard. Normal peripheral pulses. ABDOMEN: Soft, nontender, nondistended, normal active bowel sounds. MSK: Normal range of motion. No edema. SKIN: Warm, dry, no rash. NEURO: Alert and oriented x4. No focal deficits. PSYCH: Normal mood and affect. Course Vital Signs Vital signs: Vital Signs Temperature 97.3 F L 02/17/25 14:24 Pulse Rate 78 02/17/25 14:24 Respiratory Rate 16 02/17/25 14:24 Blood Pressure 147/81 H 02/17/25 14:24 Pulse Oximetry 99 02/17/25 14:24 Oxygen Delivery Room Air 02/17/25 14:24 Temperature 97.3 F L 02/17/25 14:24 Pulse Rate 78 02/17/25 14:24 Respiratory Rate 16 02/17/25 14:24 Blood Pressure 147/81 H 02/17/25 14:24 Pulse Oximetry 99 02/17/25 14:24 Oxygen Delivery Room Air 02/17/25 14:24 Medical Decision Making MDM Narrative Medical decision making narrative: 49-year-old male who presents to the ED for rabies prophylaxis. He was exposed to a bat but has no specific bite molly lesion. No need for rabies immunoglobulin today. He was given rabies vaccine and script pad for rabies series. Vital Signs Vital Signs: Vital Signs Temperature 97.3 F L 02/17/25 14:24 Pulse Rate 78 02/17/25 14:24 Respiratory Rate 16 02/17/25 14:24 Blood Pressure 147/81 H 02/17/25 14:24 Pulse Oximetry 99 02/17/25 14:24 Oxygen Delivery Room Air 02/17/25 14:24 Temperature 97.3 F L 02/17/25 14:24 Pulse Rate 78 02/17/25 14:24 Respiratory Rate 16 02/17/25 14:24 Blood Pressure 147/81 H 02/17/25 14:24 Pulse Oximetry 99 02/17/25 14:24 Oxygen Delivery Room Air 02/17/25 14:24 Discharge Plan Discharge Clinical Impression: Need for post exposure prophylaxis for rabies Patient Disposition: Home, Self-Care Condition: Stable Instructions: Antibiotic Form Additional Instructions: [facility] for rabies series as marked on the prescription pad. If you have any new or worsening symptoms please return to the ER for further evaluation. Patient Language: Hungarian Prescriptions: No Action atorvastatin 10 mg tablet 10 mg PO DAILY Adult Low Dose Aspirin 81 mg Tablet 81 mg PO DAILY Fish Oil 1,000 mg Capsule 1 cap PO DAILY multivit with min-folic acid [Adult One Daily Multivitamin] 0.4 mg Tablet 1 tablet PO DAILY peg 3350-electrolytes [Golytely] 236-22.74-6.74 -5.86 gram recon soln 240 ml PO Q10M Qty: 4000 0RF Rx Instructions: TAKE DIRECTED MAY SUBSTITUTE ANY PEG PREP TAKE DIRECTED Follow-up/Referrals: Nicanor,MD Nirmal [Primary Care Provider] - Time of Disposition: 17:07
[2025-02-17] MEDS: RABIES VACCINE (RABAVERT) 2.5 UNITS VIAL IM (17:22)
== END 2025-02-17 17:31 | disposition home or self-care (01) ==
PROVIDERS: Emergency Provider Physician Assistant; PCP Internal Medicine
DX: Z20.3 Contact with and (suspected) exposure to rabies (principal); Z23 Encounter for immunization
CPT/HCPCS: 90471; 90675; 99282

== ENCOUNTER 2025-03-03 07:34 | Outpatient (RCR) | payer BC, SELFPAY ==
[2025-02-21] MEDS: RABIES IMMUNE GLOBULIN 1682 UNITS IM (11:23)
[2025-02-21] MEDS: RABIES VACCINE (RABAVERT) 2.5 UNITS VIAL IM (11:24)
== END 2025-05-22 23:59 | disposition home or self-care (01) ==
LOC: ANHVASCINF 07:34
PROVIDERS: PCP Internal Medicine; Visit Provider Physician Assistant
DX: Z20.3 Contact with and (suspected) exposure to rabies (principal); Z29.14 Encounter for prophylactic rabies immune globulin
CPT/HCPCS: 90375; 90471; 90675; 96372